=== PATIENT | female | born 2000 | race African-American/Black ===

== ENCOUNTER 2023-12-15 08:41 | Emergency (ER) | payer SELFPAY ==
[~2023-12-15] VITALS: Ht 162.6 cm; Wt 57.0 kg
[2023-12-15 08:49] VITALS: TEMP 98.8; O2SAT 99
[2023-12-15] MEDS ORDERED: AMOX1TAB16 MT (09:57)
[2023-12-15] MEDS ORDERED: IBUP-2029 MT (09:57)
[2023-12-15 10:27] VITALS: BP 137/74; PULSE 87; RESP 16
[2023-12-15] MEDS: HYDROCODONE/ACETAMINOPHEN 5/325MG TABLET PO ONE (10:27)
[2023-12-15] MEDS: KETOROLAC 30MG/ML VIAL IM ONE (10:27)
== END 2023-12-15 11:24 | disposition home or self-care (01) ==
LOC: ER 08:41
DX: R22.0 Localized swelling, mass and lump, head (principal); K08.89 Other specified disorders of teeth and supporting structures
CPT/HCPCS: 81025; 96372; 99283; J1885; Z7610